=== PATIENT | male | born 1960 | race Caucasian/White ===

== ENCOUNTER → 2016-11-09 | Day surgery (SDC) | payer OTHER ==
[~2016-11-09] VITALS: Ht 185.4 cm; Wt 158.8 kg
[~2016-11-09] MED LIST: 0.9% Sodium Chloride 1,000 ML IV SCH; ASPI325T32 PO; CALC-777 PO; HYDR-4003 PO; IBUP200C PO; INSU100I18 SQ; INSU100V7 SUBQ; LIP40 PO; LISI-607 PO; LOVA40TA PO; METF1000 PO; METO100T3 PO; OMEP20CA11 PO; Sodium Chloride LOK Flush 10 mL Syringe IV PRN; TADA10TA PO; VARE1TAB22 PO; fentaNYL-PF 50 mCg/mL 2 mL Inj IVPUSH PRN
[2016-11-09 13:03] VITALS: BP 146/73; PULSE 72; RESP 16; O2SAT 96
[2016-11-09 14:10] VITALS: BP 150/77; PULSE 68; RESP 14; O2SAT 93
[2016-11-09 14:21] VITALS: BP 144/69; PULSE 69; RESP 14; O2SAT 95
[2016-11-09 14:31] VITALS: BP 145/70; PULSE 70; RESP 14; O2SAT 97
--- NOTE | 2016-11-10 00:12 | ENDO ---
[address] [address] ENDOSCOPY PROCEDURE PATIENT: SIDRA ARIAS : 1960 MR#: [id number] ADMIT: 11/09/2016 JOB ID: [id number] PRIMARY PROVIDER: Teddy Jay MD PROCEDURE: Colonoscopy with cold forceps polypectomies. INDICATIONS: A 56-year-old male with a personal history of adenomatous colon polyps, returning for surveillance. EQUIPMENT: PCFace to Face Live-H180-AL. SEDATION: 5 mg Versed and 100 mcg fentanyl. COMPLICATIONS: None identified. BOWEL PREPARATION: Fair, adequate exam. PROCEDURAL INFORMATION: After the risks and benefits were explained, written and verbal informed consent was obtained. The patient was brought into the endoscopy suite and placed into the left lateral decubitus position. Sedation was achieved as above. A digital rectal examination accomplished. No significant pathology appreciated. The scope was introduced into the rectum and advanced under direct visualization to the level of the cecum, as identified by the appendiceal orifice and ileocecal valve. The scope was slowly withdrawn to carefully examine the mucosa for any defects or lesions. Retroflexed views were accomplished in the rectum. The colon was decompressed, the scope removed from the patient who tolerated the procedure well. FINDINGS: There were three diminutive polyps in the rectosigmoid region and one in the ascending colon removed with cold forceps. All of these were quite diminutive. No other significant pathology was appreciated throughout. ENDOSCOPIC DIAGNOSIS: Diminutive colon polyps. RECOMMENDATIONS: 1. Await histopathology. 2. If greater than two of these are adenomatous, repeat colonoscopy in three years. Otherwise, a five year follow up would be appropriate.
--- NOTE | 2016-11-11 11:25 | PATH ---
SURGICAL PATHOLOGY Attending Physician:Meir Blas CASE STATUS: Signed Out PATIENT NAME: SIDRA ARIAS PID: [id number] : 1960 DATE COLLECTED:11/09/2016 00:00 SPECIMEN: Colon, Biopsy CLINICAL HISTORY: 1). COLON POLYP FINAL DIAGNOSIS: 1.COLON POLYPS: HYPERPLASTIC POLYPS, 4. ICD10 CODE K63.5 GROSS DESCRIPTION: The specimen is received in one formalin filled container labeled with the patient's name, sublabeled "colon polyps" and consists of 4 portions of tissue which aggregate to 0.4 x 0.3 x 0.2 CM. The specimen is entirely submitted in one cassette. 11/10/2016 [facility] MICRO DESCRIPTION: See diagnosis. ICD-9 CODES: CPT CODES: 1: 69773 Electronically Signed Out Erica North MD [facility] Pathology [facility] [address], [place] [address] Technical component performed at [facility], [facility] [address], [address]
== END | disposition home or self-care (01) ==
LOC: END 00:29
PROVIDERS: ATTEND Internal Medicine Gastroenterology
DX: Z12.11 Encounter for screening for malignant neoplasm of colon (principal); Z86.010 Personal history of colon polyps; K63.5 Polyp of colon; E11.9 Type 2 diabetes mellitus without complications; Z79.4 Long term (current) use of insulin; I10 Essential (primary) hypertension; K75.81 Nonalcoholic steatohepatitis (NASH); G47.30 Sleep apnea, unspecified
CPT/HCPCS: 45380; 99153; G0500; J2250; J3010; J7030